=== PATIENT | male | born 1960 | race Two or more races ===

== ENCOUNTER 2020-02-27 05:44 | Emergency (ER) | payer MEDICAID ==
[~2020-02-27] VITALS: Ht 175.3 cm; Wt 90.7 kg
--- NOTE | 2020-02-27 06:03 | NUR ---
PATIENT CAME TO ER BED 6 C/O NAUSEA. PATIENT STATES THAT HE ATE A TURKEY SANDWICH AT 0100 WHEN HE "FELT SICK" 20 MIN. S/P EATING TURKEY SANDWICH. PATIENT STATES HE WAS DRY HEAVING, BUT UNABLE TO PRODUCE VOMIT. PATIENT STATES THAT HIS BODY FELT WARM, UPON CHECKING TEMPERATURE, 97.7. PATIENT CURRENTLY FEELS SLIGHTLY NAUSEOUS. AAOX4. NO SOB. BREATHING EVENLY AND UNLABORED ON ROOM AIR.
[2020-02-27 06:07] VITALS: BP 154/101
[2020-02-27] MEDS ORDERED: ONDANSETRON 4 MG TAB.RAPDIS ONE (06:33)
--- NOTE | 2020-02-27 06:40 | NUR ---
Patient discharged to home in stable condition. Written and verbal after care instructions given. Patient verbalizes understanding of instruction.
[2020-02-27] MEDS ORDERED: ONDANSETRON 4 MG TAB.RAPDIS PO ONE (07:00)
== END 2020-02-27 06:40 | disposition home or self-care (01) ==
LOC: ER 05:47
DX: R50.9 Fever, unspecified (principal); I10 Essential (primary) hypertension; E78.5 Hyperlipidemia, unspecified
CPT/HCPCS: 99283; Q0162

== ENCOUNTER 2020-07-10 22:05 | Emergency (ER) | payer MEDICAID ==
[~2020-07-10] VITALS: Ht 175.3 cm; Wt 90.7 kg
[2020-07-10] MEDS ORDERED: METOPROLOL TARTRATE INJ 5 MG/5 ML AMPUL IV ONE (22:30)
[2020-07-10] MEDS ORDERED: MECLIZINE HCL 12.5 MG TABLET PO ONE (22:30)
[2020-07-10] MEDS ORDERED: MECLIZINE HCL 25 MG TABLET ONE (22:34)
[2020-07-10 22:42] LABS: BASOPHILS # (AUTO) 0.1 /CMM (0.0-0.2); BASOPHILS % (AUTO) 0.9 % (0.0-2.0); EOSINOPHILS % (AUTO) 1.7 % (0.0-6.0); HEMATOCRIT 44 % (39-51); LYMPHOCYTES # (AUTO) 2.4 /CMM (0.8-4.8); LYMPHOCYTES % (AUTO) 25.3 % (20.0-44.0); MEAN CORPUSCULAR HGB CONC 34 g/dl (31.0-36.0); MEAN CORPUSCULAR VOLUME 85 fL (80-96); MONOCYTES # (AUTO) 0.6 /CMM (0.1-1.30); MONOCYTES % (AUTO) 5.9 % (2.0-12.0); NEUTROPHILS # (AUTO) 6.3 /CMM (1.8-8.9); NEUTROPHILS % (AUTO) 66.2 % (43.0-81.0); PLATELET COUNT (AUTO) 183 /CMM (150-450); RED BLOOD CELL COUNT(AUTO) 5.17 MIL/uL (4.5-6.0); WHITE BLOOD COUNT (AUTO) 9.6 K/uL (4.3-11.0)
[2020-07-10] MEDS ORDERED: METOPROLOL TARTRATE INJ 5 MG/5 ML AMPUL ONE (22:46)
--- NOTE | 2020-07-10 22:49 | NUR ---
BIBS FROM HOME TO ER BED 2. AAOX4. NOT IN RESP DISTRESS, BREATHING EVEN AND UNLABORED. AMBULATORY. CAME IN FOR DIZZYNESS, RINGING IN THE EAR AND INTERMITENT HEADACHE X 3 WEEKS DESPITE HAVING HIS EAR FLUSHED AND FINISHING HIS ATB. MD WAS AT THE BEDSIDE FOR EVAL. ORDERS RECEIVED NOTED AND CARRIED OUT.
--- NOTE | 2020-07-10 22:50 | NUR ---
TO CT ON [place]
--- NOTE | 2020-07-10 22:56 | NUR ---
RETURNED FROM CT.
[2020-07-10 23:02] LABS: ALANINE AMINOTRANSFERASE 40 U/L (12-78); ALBUMIN 3.6 g/dL (3.4-5.0); ALKALINE PHOSPHATASE 91 U/L (46-116); ASPARTATE AMINOTRANSFERASE 18 U/L (15-37); BILIRUBIN,DIRECT 0.2 mg/dL (0.0-0.2); BILIRUBIN,TOTAL 0.5 mg/dL (0.2-1.0); CALCIUM, SERUM 8.6 mg/dL (8.5-10.1); CARBON DIOXIDE 26 mmol/L (21-32); CHLORIDE 108 mmol/L (98-107); CREATININE 1.4 mg/dL (0.6-1.3); GLUCOSE 114 mg/dL (74-106); POTASSIUM 3.4 mmol/L (3.5-5.1); SODIUM SERUM 142 mmol/L (136-145); TOTAL PROTEIN, SERUM 6.7 g/dL (6.4-8.2); UREA NITROGEN, BLOOD 24 mg/dL (7-18)
[2020-07-10] MEDS ORDERED: hydrALAZINE HCL IV 20 MG VIAL IV ONE (23:30)
--- NOTE | 2020-07-10 23:59 | NUR ---
IV removed. Catheter intact and site benign. Pressure and 4x4 applied to site. No bleeding noted. Patient discharged to home in stable condition. Written and verbal after care instructions given. Patient verbalizes understanding of instruction and RX. Pt ambulated with steady gait. vss.
[2020-07-11 00:03] VITALS: BP 147/93
== END 2020-07-11 00:03 | disposition home or self-care (01) ==
LOC: ER 22:09
DX: I10 Essential (primary) hypertension (principal); H93.12 Tinnitus, left ear; R51 Headache; R42 Dizziness and giddiness; E78.5 Hyperlipidemia, unspecified
CPT/HCPCS: 36415; 70450; 71045; 80048; 80076; 84484; 85025; 93005; 96374; 99285; J3490; J8597

== ENCOUNTER 2020-11-16 00:41 | Emergency (ER) | payer MEDICAID ==
[~2020-11-16] VITALS: Ht 175.3 cm; Wt 93.4 kg
[2020-11-16 01:00] VITALS: BP 157/78
[2020-11-16] MEDS ORDERED: ONDANSETRON 4 MG TAB.RAPDIS ONE (01:20)
[2020-11-16] MEDS ORDERED: ONDANSETRON 4 MG TAB.RAPDIS SL ONE (01:30)
== END 2020-11-16 01:25 | disposition home or self-care (01) ==
LOC: ER 00:47
DX: J06.9 Acute upper respiratory infection, unspecified (principal); R11.0 Nausea; I10 Essential (primary) hypertension; E78.5 Hyperlipidemia, unspecified
CPT/HCPCS: 99283; Q0162

== ENCOUNTER 2021-04-16 22:37 | Emergency (ER) | payer MEDICAID ==
[~2021-04-16] VITALS: Ht 172.7 cm; Wt 93.0 kg
--- NOTE | 2021-04-16 23:00 | NUR ---
Pt bibself c/o hypertension after checking bp at [facility]. Pt aaox4 breathing evenly and unlabored. Pt states "i went to [facility] and took my bp, it was 167/117. Lately, my head gets hot and i have chest pain". Pt skin warm, dry, and intact. Pt given attached to monitor and pox. Pt given blanket and call light within reach
--- NOTE | 2021-04-16 23:30 | NUR ---
Patient discharged to home in stable condition. Written and verbal after care instructions given. Patient verbalizes understanding of instruction. Pt ambulatory with a steady gait
[2021-04-16 23:35] VITALS: BP 150/99
== END 2021-04-16 23:30 | disposition home or self-care (01) ==
LOC: ER 22:37
DX: I10 Essential (primary) hypertension (principal); R51.9 Headache, unspecified; E78.5 Hyperlipidemia, unspecified; Z98.890 Other specified postprocedural states

== ENCOUNTER 2022-08-22 21:38 | Emergency (ER) | payer MEDICAID ==
[~2022-08-22] VITALS: Ht 172.7 cm; Wt 90.7 kg
--- NOTE | 2022-08-22 21:55 | NUR ---
TO ER BED 10. BIBS C/O L FLANK PAIN X1HOUR . PT IS ALERT AND ORIENTED. RR EVEN AND NON LABORED. PAIN 8/10 ON P/S. CONNECTED TO MONITOR
[2022-08-22] MEDS ORDERED: ONDANSETRON HCL/PF 4 MG/2 ML VIAL ONE (21:56)
[2022-08-22] MEDS ORDERED: KETOROLAC TROMETHAMINE 15 MG/ML VIAL ONE (21:56)
[2022-08-22] MEDS ORDERED: ONDANSETRON HCL/PF 4 MG/2 ML VIAL IVP ONE (22:00)
[2022-08-22] MEDS ORDERED: KETOROLAC TROMETHAMINE INJ 30 MG/ML VIAL IV ONE (22:00)
[2022-08-22 22:39] LABS: BASOPHILS # (AUTO) 0.1 K/uL (0.0-0.2); BASOPHILS % (AUTO) 1.2 % (0.0-2.0); EOSINOPHILS % (AUTO) 2.2 % (0.0-6.0); HEMATOCRIT 45 % (39-51); LYMPHOCYTES % (AUTO) 31.7 % (20.0-44.0); MEAN CORPUSCULAR HGB CONC 33 g/dl (31.0-36.0); MEAN CORPUSCULAR VOLUME 86 fL (80-96); MONOCYTES # (AUTO) 0.7 K/uL (0.1-1.30); MONOCYTES % (AUTO) 7.4 % (2.0-12.0); NEUTROPHILS # (AUTO) 5.4 K/uL (1.8-8.9); NEUTROPHILS % (AUTO) 57.5 % (43.0-81.0); PLATELET COUNT (AUTO) 199 K/uL (150-450); RED BLOOD CELL COUNT(AUTO) 5.21 MIL/uL (4.5-6.0); WHITE BLOOD COUNT (AUTO) 9.4 K/uL (4.3-11.0)
[2022-08-22 22:50] LABS: BILIRUBIN,URINE NEGATIVE (NEGATIVE); COLOR,URINE YELLOW (YELLOW); LEUKOCYTE ESTERASE ,URINE NEGATIVE (NEGATIVE); NITRITE, URINE NEGATIVE (NEGATIVE); PROTEIN,URINE NEGATIVE (NEGATIVE); UGLUCOSE NEGATIVE (NEGATIVE)
[2022-08-22 22:50] LABS: CALCIUM, SERUM 8.9 mg/dL (8.5-10.1); CREATININE 1.6 mg/dL (0.6-1.3); POTASSIUM 3.9 mmol/L (3.5-5.1)
[2022-08-22 22:58] LABS: BACTERIA,URINE Rare /HPF (None Seen); RBC,URINE 0-2 /HPF (0-2); SQUAMOUS EPITHELIAL CELL,UR Few /HPF (None Seen)
[2022-08-22] MEDS ORDERED: TAMS-12 PO (23:30)
[2022-08-22] MEDS ORDERED: ONDA4TAB11 PO (23:30)
[2022-08-22] MEDS ORDERED: OXYC-128 PO (23:30)
--- NOTE | 2022-08-22 23:38 | NUR ---
Patient discharged to home in stable condition. Written and verbal after care instructions given. Patient verbalizes understanding of instruction.
[2022-08-23 00:44] VITALS: BP 141/78
== END 2022-08-23 00:44 | disposition home or self-care (01) ==
LOC: ER 21:43
DX: N20.0 Calculus of kidney (principal); I10 Essential (primary) hypertension; E78.5 Hyperlipidemia, unspecified; Z98.890 Other specified postprocedural states
CPT/HCPCS: 99284; 74176; 96374; 96375; 85025; 80048; 81001; 36415; J2405; J1885

== ENCOUNTER 2022-11-13 01:32 | Emergency (ER) | payer MEDICAID ==
[~2022-11-13] VITALS: Ht 175.3 cm; Wt 90.7 kg
[~2022-11-13 01:32] MED LIST: ONDA4TAB11 PO; OXYC-128 PO; TAMS-12 PO
[2022-11-13 01:52] VITALS: BP 162/101
--- NOTE | 2022-11-13 01:52 | NUR ---
BIBS FOR C/O BUE NUMBNESS AND TINGLING SENSATION MOSTLY ON THE R SIDE. WITH HX OF CARPAL TUNNEL. A/OX 3. TOLERATING R/A WELL WITH NO RESP DISTRESS. RR EVEN AND NON LABORED. AMBULATORY WITH STEADY GAIT.
--- NOTE | 2022-11-13 02:11 | NUR ---
SPLINT APPLIED TO R WRIST Addendum: 11/13/22 at 0218 by JISIP SPLINT APPLIED TO BILATERAL WRISTS
--- NOTE | 2022-11-13 02:28 | NUR ---
Patient discharged to home in stable condition. Written and verbal after care instructions given. Patient verbalizes understanding of instruction.
== END 2022-11-13 02:32 | disposition home or self-care (01) ==
LOC: ER 01:40
DX: G56.03 Carpal tunnel syndrome, bilateral upper limbs (principal); I10 Essential (primary) hypertension; E78.5 Hyperlipidemia, unspecified; Z79.899 Other long term (current) drug therapy

== ENCOUNTER 2024-02-09 14:25 | Emergency (ER) | payer MEDICAID ==
[2024-02-09] MEDS ORDERED: AZIT250T PO (15:43)
[2024-02-09] MEDS ORDERED: BENZ-13 PO (15:43)
[2024-02-09] MEDS ORDERED: KETOROLAC TROMETHAMINE INJ 30 MG/ML VIAL ONE (16:20)
[2024-02-09] MEDS ORDERED: ONDANSETRON HCL/PF 4 MG/2 ML VIAL ONE (16:20)
[2024-02-09] MEDS: KETOROLAC TROMETHAMINE INJ 30 MG/ML VIAL IV ONE (16:24)
[2024-02-09] MEDS: ONDANSETRON HCL/PF 4 MG/2 ML VIAL IVP ONE (16:24)
[2024-02-09] MEDS: IV NS 0.9% 1,000 ML BAG IV ONE (16:24)
[2024-02-09 16:29] LABS: BASOPHILS # (AUTO) 0.1 K/uL (0.0-0.2); BASOPHILS % (AUTO) 1.2 % (0.0-2.0); EOSINOPHILS # (AUTO) 0.2 K/uL (0.0-0.7); EOSINOPHILS % (AUTO) 2.1 % (0.0-6.0); HEMATOCRIT 42 % (39-51); HEMOGLOBIN 13.9 g/dL (13.5-17.5); LYMPHOCYTES # (AUTO) 1.4 K/uL (0.8-4.8); LYMPHOCYTES % (AUTO) 18.5 % (20.0-44.0); MEAN CORPUSCULAR HEMOGLOBIN 28 PG (26.0-33.0); MEAN CORPUSCULAR HGB CONC 33 g/dl (31.0-36.0); MEAN CORPUSCULAR VOLUME 84 fL (80-96); MONOCYTES # (AUTO) 0.5 K/uL (0.1-1.30); MONOCYTES % (AUTO) 6.1 % (2.0-12.0); NEUTROPHILS # (AUTO) 5.5 K/uL (1.8-8.9); NEUTROPHILS % (AUTO) 72.1 % (43.0-81.0); PLATELET COUNT (AUTO) 238 K/uL (150-450); RED BLOOD CELL COUNT(AUTO) 4.99 MIL/uL (4.5-6.0); RED CELL DISTRIBUTION WIDTH 13.2 % (11.5-15.0); WHITE BLOOD COUNT (AUTO) 7.6 K/uL (4.3-11.0)
[2024-02-09 16:38] LABS: CALCIUM, SERUM 8.8 mg/dL (8.5-10.1); POTASSIUM 3.3 mmol/L (3.5-5.1)
[2024-02-09 16:47] LABS: ALBUMIN 3.3 g/dL (3.4-5.0); BILIRUBIN,DIRECT 0.2 mg/dL (0.0-0.2); BILIRUBIN,TOTAL 0.6 mg/dL (0.2-1.0); TOTAL PROTEIN, SERUM 7.1 g/dL (6.4-8.2)
[2024-02-09] MEDS ORDERED: POTASSIUM CHLORIDE 20 MEQ TAB.PRT.SR PO ONE (17:01)
[2024-02-09] MEDS: POTASSIUM CHLORIDE 20 MEQ TAB.PRT.SR PO ONE (17:04)
[2024-02-09] MEDS ORDERED: ONDA4TAB11 PO (17:30)
[2024-02-09] MEDS ORDERED: AMOX-430 PO (17:30)
== END 2024-02-09 17:44 | disposition home or self-care (01) ==
LOC: ER 14:33
DX: J40 Bronchitis, not specified as acute or chronic (principal); A08.4 Viral intestinal infection, unspecified; I10 Essential (primary) hypertension; E78.5 Hyperlipidemia, unspecified; Z98.890 Other specified postprocedural states
CPT/HCPCS: 99285; 74176; 96374; 71045; 96361; 96375; 85025; 80048; 83690; 80076; 36415; J1885; J2405; J7030

== ENCOUNTER 2024-06-13 23:51 | Emergency (ER) | payer MEDICAID ==
[~2024-06-13] VITALS: Ht 175.3 cm; Wt 90.7 kg
[~2024-06-13 23:51] MED LIST changes: +AMOX-430 PO; +BENZ-13 PO
[2024-06-14 00:23] VITALS: BP 158/74; TEMP 98
[2024-06-14] MEDS ORDERED: AMOX875T2 PO (01:08)
[2024-06-14] MEDS ORDERED: SULF1TAB48 PO (01:08)
[2024-06-14] MEDS ORDERED: IBUP-1490 PO (01:08)
[2024-06-14 01:22] VITALS: O2SAT 99
== END 2024-06-14 01:22 | disposition home or self-care (01) ==
LOC: ER 23:54
DX: H02.842 Edema of right lower eyelid (principal); I10 Essential (primary) hypertension; E78.5 Hyperlipidemia, unspecified

== ENCOUNTER 2024-07-15 08:46 | Emergency (ER) | payer MEDICAID ==
[~2024-07-15] VITALS: Ht 175.3 cm; Wt 90.7 kg
[~2024-07-15 08:46] MED LIST changes: +AMOX875T2 PO; +IBUP-1490 PO; +SULF1TAB48 PO
[2024-07-15] MEDS ORDERED: KETOROLAC TROMETHAMINE 15 MG/ML VIAL ONE (09:13)
[2024-07-15] MEDS ORDERED: ONDANSETRON HCL/PF 4 MG/2 ML VIAL ONE (09:13)
[2024-07-15] MEDS: IV NS 0.9% 1,000 ML BAG IV ONE (09:33)
[2024-07-15] MEDS: ONDANSETRON HCL/PF 4 MG/2 ML VIAL IVP ONE (09:33)
[2024-07-15] MEDS: KETOROLAC TROMETHAMINE 15 MG/ML VIAL IV ONE (09:33)
[2024-07-15 09:55] LABS: BASOPHILS # (AUTO) 0.1 K/uL (0.0-0.2); EOSINOPHILS # (AUTO) 0.2 K/uL (0.0-0.7); EOSINOPHILS % (AUTO) 3.4 % (0.0-6.0); HEMATOCRIT 43 % (39-51); HEMOGLOBIN 14.6 g/dL (13.5-17.5); LYMPHOCYTES # (AUTO) 1.4 K/uL (0.8-4.8); LYMPHOCYTES % (AUTO) 21.2 % (20.0-44.0); MEAN CORPUSCULAR HEMOGLOBIN 29 PG (26.0-33.0); MEAN CORPUSCULAR HGB CONC 34 g/dl (31.0-36.0); MEAN CORPUSCULAR VOLUME 86 fL (80-96); MONOCYTES # (AUTO) 0.5 K/uL (0.1-1.30); MONOCYTES % (AUTO) 8.3 % (2.0-12.0); NEUTROPHILS # (AUTO) 4.2 K/uL (1.8-8.9); NEUTROPHILS % (AUTO) 66.1 % (43.0-81.0); PLATELET COUNT (AUTO) 167 K/uL (150-450); RED BLOOD CELL COUNT(AUTO) 5.05 MIL/uL (4.5-6.0); RED CELL DISTRIBUTION WIDTH 12.9 % (11.5-15.0); WHITE BLOOD COUNT (AUTO) 6.4 K/uL (4.3-11.0)
[2024-07-15 10:06] LABS: CALCIUM, SERUM 9.4 mg/dL (8.5-10.1); POTASSIUM 3.4 mmol/L (3.5-5.1)
[2024-07-15 10:13] LABS: ALBUMIN 3.3 g/dL (3.4-5.0); BILIRUBIN,DIRECT 0.2 mg/dL (0.0-0.2); TOTAL PROTEIN, SERUM 6.8 g/dL (6.4-8.2)
[2024-07-15 11:07] LABS: BILIRUBIN,TOTAL 0.7 mg/dL (0.2-1.0)
[2024-07-15] MEDS ORDERED: ONDA4TAB11 PO (11:53)
[2024-07-15 12:12] VITALS: BP 148/80; TEMP 98.4; O2SAT 99
== END 2024-07-15 12:13 | disposition home or self-care (01) ==
LOC: ER 08:46
DX: R11.2 Nausea with vomiting, unspecified (principal); R42 Dizziness and giddiness; R10.9 Unspecified abdominal pain; I10 Essential (primary) hypertension; E78.5 Hyperlipidemia, unspecified; Z98.890 Other specified postprocedural states; Z98.42 Cataract extraction status, left eye
CPT/HCPCS: 99284; 96374; 96361; 96375; 93005; 85025; 80048; 83690; 80076; 36415; J2405; J7030; A4223; J1885

== ENCOUNTER 2025-06-12 23:25 | Emergency (ER) | payer MEDICARE, OTHER ==
[~2025-06-12] VITALS: Ht 177.8 cm; Wt 97.5 kg
[2025-06-12 23:51] VITALS: BP 151/88; TEMP 98.6
[2025-06-13 00:16] LABS: APPEARANCE,URINE CLEAR (CLEAR); BLOOD, URINE TRACE-INTA Ery/uL (NEGATIVE); LEUKOCYTE ESTERASE ,URINE NEGATIVE (NEGATIVE); NITRITE, URINE NEGATIVE (NEGATIVE); UGLUCOSE NEGATIVE (NEGATIVE)
[2025-06-13 00:32] VITALS: O2SAT 97
[2025-06-13 00:34] LABS: ADD URINE CULTURE NO; SQUAMOUS EPITHELIAL CELL,UR Few /HPF (None Seen)
== END 2025-06-13 00:35 | disposition home or self-care (01) ==
LOC: ER 23:33
DX: N40.1 Benign prostatic hyperplasia with lower urinary tract symptoms (principal); I10 Essential (primary) hypertension; E78.5 Hyperlipidemia, unspecified; R33.8 Other retention of urine; Z98.890 Other specified postprocedural states
CPT/HCPCS: 81001